=== PATIENT | female | born 1960 | race American Indian/Alaskan Native ===

== ENCOUNTER 2020-05-14 10:24 | Outpatient (CLI) | payer OTHER ==
--- NOTE | 2020-05-14 13:12 | Mammography Report ---
DIGITAL DIAGNOSTIC MAMMOGRAM WITH CAD CONVENTIONAL, 05/14/2020 CLINICAL INFORMATION / INDICATION: Patient presents for six-month follow-up of probably benign calcif ications in the right breast. ABNORMAL MAMMO TECHNIQUE: Digital right mammographic imaging was performed. This examination was interpreted with the benefit of Computer-aided Detection analysis. COMPARISON: Prior mammograms 10/11/2019 and 07/17/2019 FINDINGS: Breast Density: The breasts are heterogeneously dense, which may obscure small masses. There are stable regional calcifications seen in the upper outer quadrant of the right breast. There is suggestion of probable layering within components of the calcifications, suggesting benign milk of calcium. There has been no significant change compared with the prior examinations. Otherwise, no do minant mass, suspicious calcifications or architectural distortion in the right breast. IMPRESSION: 1. Right breast calcifications are unchanged from prior examination and remain probably benign, with components possibly representing benign milk of calcium. Recommend mammogram in 6 months to ensure on going stability, at which time patient will be due for bilateral examination. Follow up recommendation: Short term follow up in 6 months. BI-RADS Category 3: Probably Benign. Followup in 6 months. A "normal" or negative report should not discourage follow up or biopsy of a clinically significant f inding. A written summary of these findings will be mailed to the patient. The patient will be entered into a mammography reporting system which will generate a reminder letter for the patient's next appointmen t at the appropriate interval. According to the [employer], yearly mammograms are recommended starting at age 40 and continuing as long as a woman is in good health. Breast MRI is recommended for women with an messi roximately 20-25% or greater lifetime risk of breast cancer, including women with a strong family his tory of breast or ovarian cancer and women who have been treated for Hodgkin's disease. Signer Name: Domi Yeung MD Signed: 05/14/2020 1:07 PM Workstation Name: [id number]
== END 2020-05-14 10:25 | disposition home or self-care (01) ==
LOC: SPVWC 10:24
PROVIDERS: ATTEND Internal Medicine
DX: R92.1 Mammographic calcification found on diagnostic imaging of breast (principal)

== ENCOUNTER 2020-12-24 10:03 | Outpatient (CLI) | payer OTHER ==
--- NOTE | 2020-12-24 12:06 | Mammography Report ---
DIGITAL DIAGNOSTIC MAMMOGRAM WITH CAD , 12/24/2020 CLINICAL INFORMATION / INDICATION: This is a 6 month short-term follow-up right mammogram for calcifi cations. ABNORMAL MAMMO R92.8 TECHNIQUE: Digital bilateral mammographic imaging was performed. This examination was interpreted with the benefit of Computer-aided Detection analysis. COMPARISON: 07/17/2019 FINDINGS: Breast Density: The breasts are heterogeneously dense, which may obscure small masses. No dominant mass, suspicious calcifications or architectural distortion in the left breast. Previously noted grouped calcifications in the upper outer quadrant of the right breast remain unchan ged in appearance. The calcifications are layering on the true lateral view indicative of benign milk of calcium. No further follow-up is warranted. Left breast biopsy clip and postsurgical scar are noted. Overall, no interval change. IMPRESSION: No mammographic evidence of malignancy. Follow up recommendation: Routine yearly BI-RADS Category 2: Benign. A "normal" or negative report should not discourage follow up or biopsy of a clinically significant f inding. A written summary of these findings will be mailed to the patient. The patient will be entered into a mammography reporting system which will generate a reminder letter for the patient's next appointmen t at the appropriate interval. According to the [employer], yearly mammograms are recommended starting at age 40 and continuing as long as a woman is in good health. Breast MRI is recommended for women with an messi roximately 20-25% or greater lifetime risk of breast cancer, including women with a strong family his tory of breast or ovarian cancer and women who have been treated for Hodgkin's disease. Signer Name: Gabbi Smith MD Signed: 12/24/2020 12:02 PM Workstation Name: [id number]
== END 2020-12-24 10:04 | disposition home or self-care (01) ==
LOC: SPVWC 10:03
PROVIDERS: ATTEND Internal Medicine
DX: R92.1 Mammographic calcification found on diagnostic imaging of breast (principal)
CPT/HCPCS: 77066

== ENCOUNTER 2022-01-27 08:15 | Outpatient (CLI) | payer OTHER ==
--- NOTE | 2022-01-28 08:02 | Mammography Report ---
DIGITAL SCREENING MAMMOGRAM WITH CAD, 01/27/2022 CLINICAL INFORMATION / INDICATION: Routine screening mammography. TECHNIQUE: Digital bilateral 2D mammography was obtained in the craniocaudal and mediolateral oblique projections. This examination was interpreted with the benefit of Computer-Aided Detection analysis. COMPARISON: 05/14/2020 and 12/24/2020. FINDINGS: Breast Density: The breasts are heterogeneously dense, which may obscure small masses. No dominant mass, suspicious calcifications, or architectural distortion in either breast. Left breast scar and biopsy clip are again noted. No new abnormality is seen. IMPRESSION: No mammographic evidence of malignancy. Follow up recommendation: Routine yearly screening mammogram. BI-RADS Category 2: BENIGN. A "normal" or negative report should not discourage follow up or biopsy of a clinically significant f inding. A written summary of these findings will be mailed to the patient. The patient will be entered into a mammography reporting system which will generate a reminder letter for the patient's next appointmen t at the appropriate interval. The [employer] recommends yearly mammograms starting at age 40 and continuing as l krishan as a woman is in good health. Breast MRI is recommended for women with an approximate 20-25% or greater lifetime risk of breast cancer, including women with a strong family history of breast or ova tiffanie cancer or who have been treated for Hodgkin's disease. Signer Name: Matthew Lei MD Signed: 01/28/2022 7:58 AM Workstation Name: [id number]
== END 2022-01-27 08:16 | disposition home or self-care (01) ==
LOC: SPVWC 08:15
PROVIDERS: ATTEND Internal Medicine
DX: Z12.31 Encounter for screening mammogram for malignant neoplasm of breast (principal)
CPT/HCPCS: 77067